=== PATIENT | male | born 1940 | race African-American/Black ===

== ENCOUNTER → 2023-06-14 | Day surgery (SDC) | payer MEDICARE, MEDICAID ==
[~2023-06-14] VITALS: Ht 172.7 cm; Wt 80.3 kg
[~2023-06-14] MED LIST: ACETAMINOPHEN 325MG TABLET PO PRN; AMI2 PO; ASPI-1497 PO; ASPIRIN/SOD BICARB/CITRIC ACID 324MG TAB EFF ONE; ATOR40TA70 PO; ATROPINE SULFATE 1MG/10ML SYR IV PRN; CLOP75TA15 PO; COR6 PO; FENTANYL CITRATE/PF 50MCG/ML 2ML VIAL ONE; FLUT1DIS IH; FURO40TA5 PO; HEPARIN 1000 UNITS/ML 10ML ONE; IODIXANOL 320MG/ML 100 ML BOTTLE IV ONE; LIDOCAINE HCL 1% 20ML VIAL (Pyxis) INJ ONE; MIDAZOLAM HCL 2 MG/2 ML VIAL ONE; MORPHINE SULFATE 2 MG/ML CPJ (NOT FOR IM USE) IV PRN; ONDANSETRON HCL 4MG/2ML INJ IV PRN; POTA8TAB70 PO; SACU1TAB7 PO; SIMV-345 PO; SPIR25TA6 PO
[2023-06-14 08:15] LABS: HEMATOCRIT. 44.4 % (42.0-52.0); HEMOGLOBIN. 14.2 g/dL (14.0-18.0); MEAN CORPUSCULAR HEMOGLOBIN 27.5 pg (28.0-32.0); MEAN CORPUSCULAR HGB CONC 32.1 g/dL (31.0-37.0); MEAN CORPUSCULAR VOLUME 85.7 fL (80.0-94.0); PLATELET 136 x1000/uL (130-400); RED BLOOD CELL COUNT 5.18 mill/uL (4.7-6.1); RED CELL DISTRIBUTION WIDTH 17.6 % (11.6-14.6); WHITE BLOOD COUNT 3.6 x1000/uL (4.5-11.0)
[2023-06-14 08:18] LABS: CALCIUM 8.9 mg/dL (8.7-10.4); CARBON DIOXIDE 21 mEq/L (21-32); CHLORIDE 107 mEq/L (98-107); CREATININE 1.1 mg/dL (0.6-1.3); GLUCOSE 112 mg/dL (70-105); POTASSIUM 4.4 mEq/L (3.5-5.1); SODIUM 138 mEq/L (136-145); UREA NITROGEN BLOOD 14 mg/dL (9-23)
[2023-06-14 09:35] LABS: DIFFERENTIAL COMMENT 1
[2023-06-14 16:48] LABS: PLATELET ESTIMATE NORMAL
== END | disposition home or self-care (01) ==
LOC: CCL 05:59
PROVIDERS: ATTEND Specialist
DX: I25.10 Atherosclerotic heart disease of native coronary artery without angina pectoris (principal); E78.5 Hyperlipidemia, unspecified; I73.9 Peripheral vascular disease, unspecified; I12.9 Hypertensive chronic kidney disease with stage 1 through stage 4 chronic kidney disease, or unspecified chronic kidney disease; N18.9 Chronic kidney disease, unspecified; I25.5 Ischemic cardiomyopathy; Z95.1 Presence of aortocoronary bypass graft; Z79.82 Long term (current) use of aspirin; Z79.899 Other long term (current) drug therapy; Z98.890 Other specified postprocedural states; Z87.891 Personal history of nicotine dependence; Z82.49 Family history of ischemic heart disease and other diseases of the circulatory system; Z83.3 Family history of diabetes mellitus
CPT/HCPCS: 80048; 85025; 36415; 93459; Z7610 ×8; C1893; C1725; C1769 ×4; J3010; Q9967; J1644 ×2; J3490; J2250; C1887; 99152; 99153; G0500